=== PATIENT | male | born 1955 | race Caucasian/White ===

== ENCOUNTER 2022-11-27 07:22 | Day surgery (SDC) | payer MEDICARE, BC, SELFPAY ==
[2022-11-27] MEDS: TETRACAINE 0.5% OPHTH 1 DROP EYE-LEFT ×2 (07:45→07:59)
[2022-11-27] MEDS: KETOROLAC OPHTH 0.5% 1 DROP EYE-LEFT ×3 (07:45→08:18)
--- NOTE | 2022-11-27 07:45 | SUR.PREOP ---
The eye drops brought by the patient (Ketorolac and Prednisolone) are examined and I have determined they are labeled by the patient's pharmacy for this patient as prescribed by the surgeon. The bottles are intact, recently obtained and appear to be correct.
[2022-11-27] MEDS: SODIUM CHLORIDE 0.9 % (FLUSH) 10 ML SYRINGE IVF (07:59)
[2022-11-27 08:01] VITALS: BP 121/91; PULSE 56; RESP 16; TEMP 36.7; O2SAT 97
[2022-11-27 08:03] VITALS: BMI 21.3
[2022-11-27] MEDS: TETRACAINE 0.5% OPHTH 2 DROP EYE-LEFT (09:06)
[2022-11-27] MEDS: BALANCED SALT IRRIG SOLN 15 ML EYE-LEFT (09:14)
[2022-11-27] MEDS: TETRACAINE 0.5% OPHTH 3 DROP EYE-LEFT (09:15)
--- NOTE | 2022-11-27 09:16 | W.ANESCHARGE ---
Anesthesia Charges Start Date/Time Anesthesia Start Date: 11/27/22 Anesthesia Start Time: 09:02 Stop Date/Time Anesthesia Stop Date: 11/27/22 Anesthesia Stop Time: 09:39
--- NOTE | 2022-11-27 09:17 | W.ANESCHARGE ---
Anesthesia Charges Start Date/Time Anesthesia Start Date: 11/27/22 Anesthesia Start Time: 09:02 Stop Date/Time Anesthesia Stop Date: 11/27/22 Anesthesia Stop Time: 09:39
[2022-11-27 09:34] VITALS: BP 114/85; PULSE 61; RESP 16; TEMP 36.8; O2SAT 98
--- NOTE | 2022-11-27 10:20 | W.PM.OPTPROC ---
Procedure Note Date of procedure: 11/27/22 Will [facility] bill your pro fee for this procedure?: Yes Procedure Description: SURGEON: Dione James MD PREOPERATIVE DIAGNOSIS: Nuclear sclerotic cataract, left eye. POSTOPERATIVE DIAGNOSIS: Nuclear sclerotic cataract, left eye. NAME OF OPERATION: Phacoemulsification of cataract with posterior chamber intraocular lens implantation in the left eye. ANESTHESIA: Topical. ESTIMATED BLOOD LOSS: Less than 2 cc. COMPLICATIONS: None. PATHOLOGY SPECIMEN: None. INDICATIONS: See consult note for details. The risks, benefits and alternatives of the procedure were explained to the patient, who elected to proceed and signed informed consent to do so. PROCEDURE: The patient was brought to the pre-holding area where the left eye was identified as the operative eye. I placed my initials above this eye. The patient received eye drops consisting of 0.5% tetracaine, 1% tropicamide, 10% phenylephrine, and 0.5% ketorolac. The patient was then brought to the operating room where the left eye was again identified as the operative eye. The eye was prepped with Betadine and draped in the usual sterile ophthalmic fashion. A #15 super-sharp blade was used to create a paracentesis site. 1% non-preserved intracameral lidocaine was injected into the anterior chamber. Endocoat was injected into the anterior chamber. A 2.4 mm keratome was used to create a three-plane self-sealing incision 1 mm anterior to the temporal limbus. A cystotome was used to create an anterior capsular leaflet. The Utrata forceps were used to extend this to form a continuous curvilinear capsulorrhexis. Hydrodissection was performed. The cataract was removed with phacoemulsification using the dlsmcn-[id number]-jzispua technique. The irrigation and aspiration tip was used to remove the remaining cortex. Healon was injected into the capsular bag. An MDADIE ZCB00 intraocular lens of 19.5 diopters was injected into the capsular bag. The irrigation and aspiration tip was used to remove the remaining viscoelastic. Balanced salt solution on a cannula was used to hydrate the wound, and the wound was found to be watertight. The pupil was noted to be round. DISPOSITION: The patient was taken to the recovery room and discharged to home in stable condition. The patient was instructed to call me or go to the emergency department with any sudden change, including dramatic loss of vision, severe pain in the eye or eyebrow region, nausea, or vomiting. The patient will follow up in the clinic tomorrow morning.
--- NOTE | 2022-11-27 11:44 | W.PM.OPTPROC ---
Procedure Note Date of procedure: 11/27/22 Will [facility] bill your pro fee for this procedure?: Yes Procedure Description: SURGEON: Dione James MD PREOPERATIVE DIAGNOSIS: Nuclear sclerotic cataract, left eye. POSTOPERATIVE DIAGNOSIS: Nuclear sclerotic cataract, left eye. NAME OF OPERATION: Phacoemulsification of cataract with posterior chamber intraocular lens implantation in the left eye. ANESTHESIA: Topical. ESTIMATED BLOOD LOSS: Less than 2 cc. COMPLICATIONS: None. PATHOLOGY SPECIMEN: None. INDICATIONS: See consult note for details. The risks, benefits and alternatives of the procedure were explained to the patient, who elected to proceed and signed informed consent to do so. PROCEDURE: The patient was brought to the pre-holding area where the left eye was identified as the operative eye. I placed my initials above this eye. The patient received eye drops consisting of 0.5% tetracaine, 1% tropicamide, 10% phenylephrine, and 0.5% ketorolac. The patient was then brought to the operating room where the left eye was again identified as the operative eye. The eye was prepped with Betadine and draped in the usual sterile ophthalmic fashion. A #15 super-sharp blade was used to create a paracentesis site. 1% non-preserved intracameral lidocaine was injected into the anterior chamber. Endocoat was injected into the anterior chamber. A 2.4 mm keratome was used to create a three-plane self-sealing incision 1 mm anterior to the temporal limbus. A cystotome was used to create an anterior capsular leaflet. The Utrata forceps were used to extend this to form a continuous curvilinear capsulorrhexis. Hydrodissection was performed. The cataract was removed with phacoemulsification using the hfgbbq-esf-tinbkhs technique. The irrigation and aspiration tip was used to remove the remaining cortex. Healon was injected into the capsular bag. An MADDIE ZCB00 intraocular lens of 19.5 diopters was injected into the capsular bag. The irrigation and aspiration tip was used to remove the remaining viscoelastic. Balanced salt solution on a cannula was used to hydrate the wound, and the wound was found to be watertight. The pupil was noted to be round. DISPOSITION: The patient was taken to the recovery room and discharged to home in stable condition. The patient was instructed to call me or go to the emergency department with any sudden change, including dramatic loss of vision, severe pain in the eye or eyebrow region, nausea, or vomiting. The patient will follow up in the clinic tomorrow morning.
== END 2022-11-27 09:56 | disposition home or self-care (01) ==
PROVIDERS: PCP Internal Medicine; Visit Provider Ophthalmology
PROC: (CPT 66984; principal; 2022-11-27 07:30)
DX: H25.11 Age-related nuclear cataract, right eye (principal)
CPT/HCPCS: 66984; 00142; A9270; J2250; J3010; V2632

== ENCOUNTER 2022-12-11 07:27 | Day surgery (SDC) | payer MEDICARE, BC, SELFPAY ==
[2022-12-11] MEDS: KETOROLAC OPHTH 0.5% 1 DROP EYE-RIGHT ×3 (07:40→07:50)
[2022-12-11] MEDS: TETRACAINE 0.5% OPHTH 1 DROP EYE-RIGHT ×2 (07:40→07:45)
[2022-12-11 07:49] VITALS: BMI 21.3
[2022-12-11 07:53] VITALS: BP 132/92; PULSE 62; RESP 16; TEMP 36.3; O2SAT 95
[2022-12-11] MEDS: SODIUM CHLORIDE 0.9 % (FLUSH) 10 ML SYRINGE IVF (07:59)
--- NOTE | 2022-12-11 08:02 | SUR.PREOP ---
The eye drops brought by the patient (Ketorolac and Prednisolone) are examined and I have determined they are labeled by the patient's pharmacy for this patient as prescribed by the surgeon. The bottles are intact, recently obtained and appear to be correct.lizette kimble rn
[2022-12-11] MEDS: TETRACAINE 0.5% OPHTH 2 DROP EYE-RIGHT (08:33)
[2022-12-11] MEDS: BALANCED SALT IRRIG SOLN 15 ML EYE-RIGHT (08:38)
--- NOTE | 2022-12-11 09:00 | W.ANESCHARGE ---
Anesthesia Charges Start Date/Time Anesthesia Start Date: 12/11/22 Anesthesia Start Time: 08:31 Stop Date/Time Anesthesia Stop Date: 12/11/22 Anesthesia Stop Time: 09:02
[2022-12-11 09:07] VITALS: BP 123/93; PULSE 65; RESP 16; TEMP 36.8; O2SAT 97
--- NOTE | 2022-12-11 09:51 | W.PM.OPTPROC ---
Procedure Note Date of procedure: 12/11/22 Will [facility] bill your pro fee for this procedure?: Yes Procedure Description: SURGEON: Dione James MD PREOPERATIVE DIAGNOSIS: Nuclear sclerotic cataract, right eye. POSTOPERATIVE DIAGNOSIS: Nuclear sclerotic cataract, right eye. NAME OF OPERATION: Phacoemulsification of cataract with posterior chamber intraocular lens implantation in the right eye. ANESTHESIA: Topical. ESTIMATED BLOOD LOSS: Less than 2 cc. COMPLICATIONS: None. PATHOLOGY SPECIMEN: None. INDICATIONS: See consult note for details. The risks, benefits and alternatives of the procedure were explained to the patient, who elected to proceed and signed informed consent to do so. PROCEDURE: The patient was brought to the pre-holding area where the right eye was identified as the operative eye. I placed my initials above this eye. The patient received eye drops consisting of 0.5% tetracaine, 1% tropicamide, 10% phenylephrine, and 0.5% ketorolac. The patient was then brought to the operating room where the right eye was again identified as the operative eye. The eye was prepped with Betadine and draped in the usual sterile ophthalmic fashion. A #15 super-sharp blade was used to create a paracentesis site. 1% non-preserved intracameral lidocaine was injected into the anterior chamber. Endocoat was injected into the anterior chamber. A 2.4 mm keratome was used to create a three-plane self-sealing incision 1 mm anterior to the temporal limbus. A cystotome was used to create an anterior capsular leaflet. The Utrata forceps were used to extend this to form a continuous curvilinear capsulorrhexis. Hydrodissection was performed. The cataract was removed with phacoemulsification using the ahrkjy-lew-qncipuh technique. The irrigation and aspiration tip was used to remove the remaining cortex. Healon was injected into the capsular bag. An MADDIE ZCB00 intraocular lens of 19.0 diopters was injected into the capsular bag. The irrigation and aspiration tip was used to remove the remaining viscoelastic. Balanced salt solution on a cannula was used to hydrate the wound, and the wound was found to be watertight. The pupil was noted to be round. DISPOSITION: The patient was taken to the recovery room and discharged to home in stable condition. The patient was instructed to call me or go to the emergency department with any sudden change, including dramatic loss of vision, severe pain in the eye or eyebrow region, nausea, or vomiting. The patient will follow up in the clinic tomorrow morning.
--- NOTE | 2022-12-11 11:54 | W.ANESCHARGE ---
Anesthesia Charges Start Date/Time Anesthesia Start Date: 12/11/22 Anesthesia Start Time: 08:31 Stop Date/Time Anesthesia Stop Date: 12/11/22 Anesthesia Stop Time: 09:02
== END 2022-12-11 09:50 | disposition home or self-care (01) ==
PROVIDERS: PCP Internal Medicine; Visit Provider Ophthalmology
PROC: (CPT 66984; principal; 2022-12-11 07:30)
DX: H25.11 Age-related nuclear cataract, right eye (principal)
CPT/HCPCS: 66984; 00142; A9270; J2250; J3010; V2632

== ENCOUNTER 2022-12-25 07:12 | Outpatient (CLI) | payer MEDICARE, BC, SELFPAY ==
--- NOTE | 2022-12-25 07:15 | CRLHL7_ITS ---
For Patients: As a result of the Cures Act, medical imaging exams and procedure reports are released immediately into your electronic medical record. You may view this report before your referring provider. If you have questions, please contact your health care provider. Examination: US abdominal aorta Indication: Abdominal aortic aneurysm screening. Technique: Hayes scale and color Doppler images of the aorta and common iliac arteries are obtained. Comparison: None Findings: Proximal aorta: 2.7 x 2.9 cm Mid aorta: 2.1 x 2.1 cm Distal aorta: 2.1 x 2.1 cm Right common iliac artery: 1.3 x 1.5 cm Left common iliac artery: 1.5 x 1.5 cm Recommended imaging interval for ectatic aorta: 2.5-2.9 cm: 5 years Impression: No abdominal aortic aneurysm. Dictated by Kuldeep Weber MD @ 12/25/2022 9:21:50 AM (Electronically Signed)
== END 2022-12-25 07:13 | disposition home or self-care (01) ==
LOC: US 07:14
PROVIDERS: PCP Internal Medicine; Visit Provider Internal Medicine
DX: Z13.6 Encounter for screening for cardiovascular disorders (principal)
CPT/HCPCS: 76706

== ENCOUNTER 2023-03-06 07:30 | Outpatient (CLI) | payer MEDICARE, BC, SELFPAY ==
--- OUTSIDE RECORDS SUMMARY | 2023-03-10 11:58 | XMS_ITS | Clinical Summary ---
Author Name Unknown Organization [employer] [facility] Address [place], [place] [address] Care Team Providers Care Special [employer] Engineer Sergeant Name Role Phone Shanon Thompson MD Primary Care Provider [phone] Allergies Active Allergy Reactions Criticality Noted Date Comments Cephalexin Hives Medium 05/23/2006 Latex Hives Medium 05/23/2006 Naproxen Anaphylaxis High 05/23/2006 Peanut Anaphylaxis High 05/23/2006 Tree Nut Anaphylaxis High 06/24/2006 Medications Medication Sig Dispensed Refills Start Date End Date Status MULTIVITAMIN AND MINERALS TAB 1 tablet every day 0 06/24/2006 Acti ve VENTOLIN 90 MCG/ACTUATION AEROSOL INHALER inhale 1 puff by inhalation route every 4-6 hours as needed 1 1 08/01/2006 Active SUMAtriptan (IMITREX) 100 mg tablet 0 12/28/2019 Active cyclobenzaprine (FLEXERIL) 5 mg tablet 0 12/28/2019 Active venlafaxine (EFFEXOR XR) 150 mg Extended-Release capsule 0 12/28/2019 Active CPAPIndications:NESS (obstructive sleep apnea) New CPAP machine for home use at pressure: 5-16 cmw , Heated humidifier x 1 q 5 yr, Humidifier chamber x 1 q 6 mo, full face mask x1 q 3mos, with full face mask cushion x 2 q mo, Heated tubing x 1 q 3 mo, Headgear x 1 q 6 mo, Filters: Disposable x 2 q mo non-disposable filters x1 q 6mo, Length of Need: 99 months, Frequency of use: Daily 1 Device 11 01/18/2020 Active Active Problems Problem Noted Date Diagnosed Date NESS 09/2007 AHI- 8 03/25/2011 Unspecified asthma(493.90) 08/01/2006 Major Depressive Disorder, Recurrent Episode, Mo derate 05/23/2006 Immunizations Name Administration Dates Next Due Influenza, IIV3 (Age >=3 years) 12/23/2005 Family History Medical History Relation Name Comments Alcohol/Drug Brother 2 Alcohol/Drug Father alcoholism Hyperlipidemia Father Arthritis Maternal Grandmother Diabetes Maternal Grandmother Alcohol/Drug Mother addicted to pre scription drugs Allergies Mother Asthma Mother Heart Disease Mother Stroke Mother Alcohol/Drug Paternal Grandfather Cancer Paternal Grandfather Allergies Paternal Grandmother Hyperlipidemia Paternal Grandmother Hypertension Paternal Grandmother Alcohol/Drug Sister 3 Alcohol/Drug Sister 4 Allergies Sister 5 Asthma Sister 6 Heart Disease Sister 7 Hypertension Sister 8 Relation Name Status Comments Brother 1 Alive Brother 2 Daughter Alive Father Maternal Grandfather Maternal Grandmother Mother Alive Paternal Grandfather Paternal Grandmother Sister 1 Alive Sister 2 Alive Sister 3 Sister 4 Sister 5 Sister 6 Sister 7 Sister 8 Son Alive Social History Tobacco Use Types Packs/Day Years Used Date Smoking Tobacco: Every Day Cigarettes 1 20 Smokeless Tobacco: Never Tobacco Cessation:Ready to Q uit: No; Counseling Given: Yes Alcohol Use Standard Drinks/Week Comments Yes 11.7 (1 standard drink = 0.6 oz pure alcohol) Social Connections Answer Date Recorded Frequency of Communication with Friends and Fami ly Not on file 02/17/2021 Financial Resource Strain Answer Date R ecorded Difficulty of Paying Living Expenses Not on file 02/17/2021 Difficulty of Paying Living Expenses Not on file 02/17/2021 Sex and Gender Information Value Date Recorded Sex Assigned at Not on file Gender Identity Not on file Sexual Orientation Not on file Obstetrics History Last Filed Vital Signs Vital Sign Reading Time Taken Comments Blood Pressure 143/99 01/12/2020 1:11 PM BANK VAULT ATTENDANT Pulse 96 01/12/2020 1:11 PM BANK VAULT ATTENDANT Temperature 36.8 ??C (98.3 ??F) 03/25/2011 3:33 PM CS T Respiratory Rate - - Oxygen Saturation 99% 01/12/2020 1:05 PM BANK VAULT ATTENDANT Inhaled Oxygen Concentration - - Weight 77.9 kg (171 lb 12.8 oz) 01/12/2020 1:05 PM BANK VAULT ATTENDANT Height - - Body Mass Index - - Plan of Treatment Health Maintenance Due Date Last Done Comments COVID-19 vaccine series (#1) 03/02/1958 Tdap 1968 Depression screening for age 12+ 1969 HIV for age 15-65 1972 BMI (ht and wt on same day) for age 18+ 08/31/1975 Hepatitis C screening for age 18-79 08/31/1975 Tetanus booster 1977 Colonoscopy through age 75 2002 Lipids for age 45-75 2002 Zoster (shingles) series for age 50+ (1 of 2) 08/31/19 08 Pneumococcal series for age 65+ (1 of 1 - PCV) 023 Influenza for age 65+ 10/18/2022 12/23/2005 Care Teams Special Forces Engineer Sergeant Relationship Specialty Start Date End Date Shanon Thompson MD [address] [place] [address] PCP - General Internal Medicine 01/12/20
== END 2023-03-06 07:31 | disposition home or self-care (01) ==
LOC: NFLDREF 03-10 11:57
PROVIDERS: PCP Internal Medicine; Referring Provider Internal Medicine; Visit Provider Internal Medicine
DX: Z12.5 Encounter for screening for malignant neoplasm of prostate (principal); Z13.1 Encounter for screening for diabetes mellitus; Z13.6 Encounter for screening for cardiovascular disorders
CPT/HCPCS: 80061; 82947; G0103

== ENCOUNTER 2023-03-14 07:02 | Outpatient (CLI) | payer MEDICARE, BC, SELFPAY ==
--- OUTSIDE RECORDS SUMMARY | 2023-03-14 07:04 | XMS_ITS | Clinical Summary ---
Author Name Unknown Organization [employer] [facility] Address [place], [place] [address] Care Team Providers Care Director Of Solutions Architecture Name Role Phone Shanon Thompson MD Primary Care Provider +1- [phone] Allergies Active Allergy Reactions Criticality Noted Date [...] Comments Blood Pressure 143/99 01/12/2020 1:11 PM CIRCUIT BOARD REPAIR TECHNICIAN Pulse 96 01/12/2020 1:11 PM CIRCUIT BOARD REPAIR TECHNICIAN Temperature 36.8 ??C (98.3 ??F) 03/25/2011 3:33 PM CS T Respiratory Rate - - Oxygen Saturation 99% 01/12/2020 1:05 PM CIRCUIT BOARD REPAIR TECHNICIAN Inhaled Oxygen Concentration - - Weight 77.9 kg (171 lb 12.8 oz) 01/12/2020 1:05 PM CIRCUIT BOARD REPAIR TECHNICIAN Height - - Body Mass Index - [...] for age 65+ 10/18/2022 12/23/2005 Care Teams Director Of Solutions Architecture Relationship Specialty Start Date End Date Shanon Thompson MD [address] [place] [address] PCP - General Internal Medicine 01/12/20
--- NOTE | 2023-03-14 07:15 | CRLHL7_ITS ---
For Patients: As a result of the Century Cures Act, medical imaging exams and procedure reports are released immediately into your electronic medical record. You may view this report before your referring provider. If you have questions, please contact your health care provider. INDICATION: Aneurysm. COMPARISON: 12/08/2018. TECHNIQUE: Axial diffusion-weighted sequence. [id number] MRA of the head. 3D reconstructed images. FINDINGS: No restricted diffusion to suggest acute ischemia. Compared to the previous exam, there is new focal dilatation with flow artifact medial to the distal left cervical ICA measuring approximately 9 mm in diameter (series 4, image 18). On 3D reconstructed images, finding is concerning for pseudo aneurysm (best seen on series 8, image 9). Otherwise, bilateral carotid siphons are patent to the skullbase. Patent [place] with diminutive bilateral posterior communicating arteries. Visualized bilateral FLOR and MCA circulations are patent without high-grade stenosis, large vessel occlusion, aneurysm. Bilateral PAY STATION COLLECTOR circulations are patent without stenosis or aneurysm. Patent right dominant vertebrobasilar system. IMPRESSION: 1. 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 2. Remainder of the MRA head is normal. Outpatient consultation with the [facility] can be arranged by calling [phone]. Dictated by Harsha Caba MD @ 03/14/2023 12:40:16 PM (Electronically Signed)
== END 2023-03-14 07:03 | disposition home or self-care (01) ==
LOC: MRI 07:02
PROVIDERS: PCP Internal Medicine; Visit Provider Internal Medicine
DX: I67.1 Cerebral aneurysm, nonruptured (principal); Z82.49 Family history of ischemic heart disease and other diseases of the circulatory system; G43.009 Migraine without aura, not intractable, without status migrainosus
CPT/HCPCS: 70544

== ENCOUNTER 2023-07-26 10:26 | Emergency (ER) | payer MEDICARE, BC, SELFPAY ==
[2023-07-26 10:32] VITALS: BP 116/78; PULSE 104; RESP 16; TEMP 35.9; O2SAT 97; BMI 21.1
--- NOTE | 2023-07-26 10:40 | CRLHL7_ITS ---
For Patients: As a result of the Cures Act, medical imaging exams and procedure reports are released immediately into your electronic medical record. You may view this report before your referring provider. If you have questions, please contact your health care provider. INDICATION: Tree fell on patient TECHNIQUE: Three views left femur FINDINGS/IMPRESSION: Normal alignment. Seen along the distal medial left femoral cortex is slight curvilinear lucency. This could be related to age indeterminate traumatic change correlate with site of pain. There is otherwise no acute fracture visualized. This could be followed up radiographically. No hip fracture. Dictated by Kenia Bush MD @ 07/26/2023 11:18:13 AM (Electronically Signed)
--- NOTE | 2023-07-26 10:41 | CRLHL7_ITS ---
For Patients: As a result of the Century Cures Act, medical imaging exams and procedure reports are released immediately into your electronic medical record. You may view this report before your referring provider. If you have questions, please contact your health care provider. Indication: Injury, rule out active bleeding. Technique: Focused sonographic evaluation was performed of the left thigh. Comparison: None available. Findings: Grayscale images demonstrate 2 heterogeneous avascular regions adjacent to the femoral cortex. The larger region measures 8.0 x 4.0 x 7.3 cm and the smaller region measures 5.1 by 3.4 x 6.5 cm. There is a small amount of color Doppler flow along the margins of these collections; however, no definite internal color Doppler flow is seen to suggest active bleeding. Exact location of these hematomas is difficult to determine given limited field of view. Impression: Two hematomas along the medial aspect of the left thigh without sonographic evidence of active bleeding; however, evaluation is limited due to field of view. Dictated by Edelmira Turcios MD @ 07/26/2023 11:58:52 AM (Electronically Signed)
--- NOTE | 2023-07-26 10:43 | ED_ITS ---
HPI - General Adult General Chief complaint: Extremity Pain/Injury, Lower Stated complaint: L leg injury, swelling Time Seen by Provider: 07/26/23 10:37 History of Present Illness HPI narrative: Patient is a 67-year-old male who had a tree that he was cutting about 6 in in diameter fall in his left medial distal thigh. He noticed a large swelling in that area and presents to the ER. He is able to walk. Does not have that much pain. He is not on any blood thinners. He denies any other injury. He has been on venlafaxine but is not on other medications. He has a past history that is reviewed in his chart. He is allergic to nap prox and cephalosporin and nonsteroidal anti-inflammatory drugs, Ativan tizanidine peanuts and tree nuts. Also allergic to latex. Related Data Home Medications ?Medication ?Instructions ?Recorded ?Confirmed Fibroplex PO 08/28/21 03/20/23 Melaleuca PO 08/28/21 03/20/23 cyclobenzaprine 5 mg tablet 5 mg PO .Qhs as needed PRN 08/28/21 03/20/23 epinephrine 0.3 mg/0.3 mL 0.3 mg IM ONCE 08/28/21 03/20/23 injection, auto-injector latanoprost 0.005 % eye drops 1 drp ophthalmic (eye) QDAY 02/21/22 03/20/23 clobetasol 0.05 % topical ointment topical 03/04/23 03/20/23 doxycycline monohydrate 50 mg 50 mg PO BID 03/04/23 03/20/23 capsule Previous Rx's ?Medication ?Instructions ?Recorded sumatriptan succinate 100 mg tablet 100 mg PO .Once as needed PRN 03/04/23 migraine headache #9 tabs venlafaxine 150 mg 150 mg PO DAILY #90 caps 03/04/23 capsule,extended release 24 hr Allergies Allergy/AdvReac Type Severity Reaction Status Date / Time naproxen Allergy Severe severe Verified 03/20/23 08:30 anaphylactic Cephalosporins Allergy Intermediate Rash Verified 03/20/23 08:30 latex Allergy Mild Rash Verified 03/20/23 08:30 NSAIDS (Non-Steroidal Allergy Unknown Verified 03/20/23 08:30 Anti-Inflamma lorazepam [From Ativan] AdvReac Intermediate skin Verified 03/20/23 08:30 crawling tizanidine AdvReac Intermediate akathisia/r Verified 03/20/23 08:30 estlessness PEANUTS Allergy Severe SOB Uncoded 03/20/23 08:30 Tree Nuts Allergy Mild Uncoded 03/20/23 08:30 Review of Systems Status of ROS: Reports: 6 or more systems reviewed and unremarkable except as noted in History and below PFSH [facility] Medical History History of asthma ?Z87.09 - Personal history of other diseases of the respiratory system (ICD- 10) Family history of cerebral aneurysm ?Z82.49 - Family history of ischemic heart disease and other diseases of the circulatory system (ICD-10) Surgical History History of cataract surgery ?Z98.49 - Cataract extraction status, unspecified eye (ICD-10) History of squamous cell carcinoma excision ?Z98.890 - Other specified postprocedural states (ICD-10) ?Z85.9 - Personal history of malignant neoplasm, unspecified (ICD-10) History of arthroscopic knee surgery ?Z98.890 - Other specified postprocedural states (ICD-10) History of sinus surgery ?Z98.890 - Other specified postprocedural states (ICD-10) History of vasectomy (02/13/09) ?Z98.52 - Vasectomy status (ICD-10) History of bilateral inguinal hernia repair (09/22/09) ?Z98.890 - Other specified postprocedural states (ICD-10) ?Z87.19 - Personal history of other diseases of the digestive system (ICD-10) Social History What is your current living situation?: I presently have a place to live Problems where you live: no known problems In the past 12 months, utilities in danger of being shut off: no In past 12 months, lack of transportation kept you from medical appts, meetings, work, or getting things needed for daily living: no In the past 12 mos, have been you worried that your food would run out before you had money to buy more?: never true In the past 12 mos, the food you bought just didn't last and you didn't have money to buy more?: never true Smoking Status: Current every day smoker What tobacco products do you use: cigarettes Smoking packs per day: 1 Smoking cigarettes per day: 20.0 How often do you have a drink containing alcohol: 4 or more times a week How many standard drinks containing alcohol do you have on a typical day: 1 or 2 How often do you have six or more drinks on one occasion: Never AUDIT-C Alcohol total score: 4 Non-prescribed substance use: denies use Caffeine: Yes (coffee) How often does anyone, including family, friends and others, physically hurt you : never How often does anyone, including family, friends and others, insult or talk down to you: never How often does anyone, including family, friends and others, threaten you with harm: never How often does anyone, including family, friends and others, scream or curse at you: never Little interest or pleasure in doing things: not at all Feeling down, depressed, or hopeless: not at all Exam Narrative: Exam Narrative: Objective: Patient's vital signs are within normal limits His left medial thigh shows a soft ball size hematoma, it is not bruised, but it is swollen at his medial quadriceps. He has ability to walk around the room, he does limp slightly. He has no knee pain or swelling. He has this area that is minimally fluctuant but slightly fluctuant feels like a hematoma. He does have good knee extension. No open wounds noted. Const: Vital Signs, click to edit/add: Vital Signs - 24 hr 07/26/23 10:32 Temperature 96.6 F L Pulse Rate [Pulse Oximeter] 104 H Respiratory Rate 16 Blood Pressure [Ri ght Upper Arm] 116/78 Pulse Oximetry 97 Oxygen Delivery Me thod Room Air Course Vital Signs Vital signs: Initial Vital Signs Temperature 96.6 F L 07/26/23 10:32 Temperature Source Temporal Artery Scan 07/26/23 10:32 Pulse Rate 104 H 07/26/23 10:32 Respiratory Rate 16 07/26/23 10:32 Blood Pressure 116/78 07/26/23 10:32 Blood Pressure Mean 90 07/26/23 10:32 Blood Pressure Position Sitting 07/26/23 10:32 Pulse Oximetry 97 07/26/23 10:32 Oxygen Delivery Method Room Air 07/26/23 10:32 Vital Signs Temperature 96.6 F L 07/26/23 10:32 Pulse Rate 104 H 07/26/23 10:32 Respiratory Rate 16 07/26/23 10:32 Blood Pressure 116/78 07/26/23 10:32 Pulse Oximetry 97 07/26/23 10:32 Oxygen Delivery Method Room Air 07/26/23 10:32 Temperature 96.6 F L 07/26/23 10:32 Pulse Rate 104 H 07/26/23 10:32 Respiratory Rate 16 07/26/23 10:32 Blood Pressure 116/78 07/26/23 10:32 Pulse Oximetry 97 07/26/23 10:32 Oxygen Delivery Method Room Air 07/26/23 10:32 Medical Decision Making MDM Narrative Medical decision making narrative: 67-year-old male with a large tree impacting his distal medial thigh, with resultant hematoma. The patient does not have circumferential swelling. He does not appear to have compartment type syndrome as he is not having pain, he has got distal pulse he has got distal sensation and color and cap refill that is normal. At this point I think an ultrasound an x-ray of his thigh would be appropriate will see if there is any active bleeding. Disposition pending findings above. Addendum 11:37 a.m.: The patient has a small little lucency in his cortex of the area of injury. This certainly could be related to his injury with the tree today, but may be an old injury as well. I think non weight-bearing immobilization ortho follow-up would be appropriate will give him crutches and knee immobilizer, he can use Tylenol for discomfort he is not having much pain at this time. Return if problems or concerns. Ortho appointment be made for him. Discharge Plan Discharge Clinical Impression: Injury of thigh, left Patient Disposition: Home w/ Parent or Adult Condition: Stable Additional Instructions: Nonweightbearing on the affected leg, wear the knee immobilizer and use crutches, orthopedic followup as described. You have a large blood collection in year thigh, and perhaps some mild injury to the bone underneath, you will see the orthopedist doctor for this. Tylenol as needed for discomfort, ice would be reasonable as well over the swelling. Activity Level: No Weight Bearing Discharge Diet: Regular Prescriptions: No Action doxycycline monohydrate 50 mg capsule 50 mg PO BID clobetasol 0.05 % ointment topical venlafaxine 150 mg capsule,extended release 24hr 150 mg PO DAILY Qty: 90 3RF sumatriptan succinate 100 mg tablet 100 mg PO .Once as needed PRN (Reason: migraine headache) Qty: 9 8RF Rx Instructions: 0.5 or 1 tab at start of headache; may repeat once in 2 hours; use no more than two days a week Melaleuca PO cyclobenzaprine 5 mg tablet 5 mg PO .Qhs as needed PRN Rx Instructions: Use qhs prn prolonged headches epinephrine 0.3 mg/0.3 mL auto-injector 0.3 mg IM ONCE Fibroplex PO latanoprost 0.005 % drops 1 drp ophthalmic (eye) QDAY Follow Up/Referrals: Shanon Thomposn MD [Primary Care Provider] - Stand Alone Forms: MyHealth Info Instructions
--- OUTSIDE RECORDS SUMMARY | 2023-07-26 10:47 | XMS_ITS | Clinical Summary ---
Author Organization [facility] Address [place], [place] [address] Care Team Providers Care Design Agent Name Role Phone Shanon Thompson MD Primary Care Provider [phone]- [phone] Allergies Active Allergy Reactions Criticality Noted Date Comments Alprazolam *Unknown - Follow up needed 03/25/19 24 Cephalexin Hives Medium 05/23/2006 Latex Hives Medium 05/23/2006 Naproxen Anaphylaxis High 05/23/2006 Peanut Anaphylaxis High 05/23/2006 Tree Nut Anaphylaxis High 06/24/2006 Medications Medication Sig Dispensed Refills Start Date End Date Status MULTIVITAMIN AND MINERALS TAB 1 tablet every day 0 06/24/2006 Acti ve VENTOLIN 90 MCG/ACTUATION AEROSOL INHALER inhale 1 puff by inhalation route every 4-6 hours as needed 1 1year 08/01/2006 Active SUMAtriptan (IMITREX) 100 mg tablet 12/28/2019 Active cyclobenzaprine (FLEXERIL) 5 mg tablet 12/28/2019 Active venlafaxine (EFFEXOR XR) 150 mg Extended-Release capsule 12/28/2019 Active CPAPIndications:NESS (obstructive sleep apnea) New [...] use: Daily 1 Device 11 01/18/2020 Active hyaluronidase in lido 2%-bupiv. 0.75% - long eye block, clinic supply, Use as directed for procedure. Refrigerate. Expires: 04/04/23 DOS: 04/03/23 10 mL 03/25/2023 Active Active Problems Problem Noted Date Diagnosed [...] Comments Blood Pressure 143/99 01/12/2020 1:11 PM GATE TECHNICIAN Pulse 96 01/12/2020 1:11 PM GATE TECHNICIAN Temperature 36.8 ??C (98.3 ??F) 03/25/2011 3:33 PM CS T Respiratory Rate - - Oxygen Saturation 99% 01/12/2020 1:05 PM GATE TECHNICIAN Inhaled Oxygen Concentration - - Weight 77.9 kg (171 lb 12.8 oz) 01/12/2020 1:05 PM GATE TECHNICIAN Height - - Body Mass Index - - Plan of Treatment Health Maintenance Due Date Last Done Comments Tdap 1968 Depression screening for age 12+ [...] 65+ (1 of 1 - PCV) 023 COVID-19 vaccine series ( season) 3 Influenza for age 65+ 10/19/2023 12/23/2005 Care Teams Design Agent Relationship Specialty Start Date End Date Shanon Thompson MD [address] [place] [address] PCP - General Internal Medicine 01/12/20
== END 2023-07-26 11:51 | disposition home or self-care (01) ==
PROVIDERS: Emergency Provider Family Medicine; PCP Internal Medicine
DX: S79.922A Unspecified injury of left thigh, initial encounter (principal); V91.39XA Hit or struck by falling object due to accident to unspecified watercraft, initial encounter
CPT/HCPCS: 73552; 76882; 99283; 99284

== ENCOUNTER 2023-08-26 08:54 | Outpatient (CLI) | payer MEDICARE, BC, SELFPAY ==
--- OUTSIDE RECORDS SUMMARY | 2023-08-26 08:57 | XMS_ITS | Clinical Summary ---
Author Organization [facility] Address [place], [place] [address] Care Team Providers Care Roller Helper Name Role Phone Shanon Thompson MD Primary Care Provider [phone]- [phone] Allergies Active Allergy Reactions Criticality Noted Date [...] Depressive Disorder, Recurrent Episode, Mo derate 05/23/2006 Encounters Date Type Department Care Team Description 08/11/2023 Telephone [facility] [address] [place] [address] Staff, Other Clinical ANEURYSM REFERRAL from Last 3 Months Immunizations Name Administration Dates Next Due Influenza, [...] Comments Blood Pressure 143/99 01/12/2020 1:11 PM ABRASIVE GRADER HELPER Pulse 96 01/12/2020 1:11 PM ABRASIVE GRADER HELPER Temperature 36.8 ??C (98.3 ??F) 03/25/2011 3:33 PM CS T Respiratory Rate - - Oxygen Saturation 99% 01/12/2020 1:05 PM ABRASIVE GRADER HELPER Inhaled Oxygen Concentration - - Weight 77.9 kg (171 lb 12.8 oz) 01/12/2020 1:05 PM ABRASIVE GRADER HELPER Height - - Body Mass Index - - Plan of Treatment Upcoming Encounters Date Type Department Care Team (Late st Contact Info) Description 09/11/2023 2:00 PM CDT Phone Office Visit [facility] [place] [address] [place] [address] Tay Choe MD [facility] [place] [address] [facility] [address] [place], [place] [id number] Health Maintenance Due Date Last Done Comments [...] - PCV) 023 COVID-19 vaccine series ( - season) 3 Influenza for age 65+ 10/19/2023 12/23/2005 Care Teams Roller Helper Relationship Specialty Start Date End Date Shanon Thompson MD [address] [place], [place] [id number] PCP - General Internal Medicine 01/12/20
--- NOTE | 2023-08-26 09:00 | CRLHL7_ITS ---
For Patients: As a result of the Century Cures Act, medical imaging exams and procedure reports are released immediately into your electronic medical record. You may view this report before your referring provider. If you have questions, please contact your health care provider. INDICATION: Cervical left ICA pseudoaneurysm. TECHNIQUE: CTA neck with contrast bolus tracking, 3D angiographic rendering using maximum intensity projection (MIP) and images permanently archived. FINDINGS: There is an [id number] mm mid cervical left ICA pseudoaneurysm. There is no significant carotid artery stenosis. There is no intraluminal thrombus. The right ICA is extremely tortuous and redundant. There is no significant vertebral artery stenosis or dissection. The soft tissues of the neck are within normal limits. The cervical spine is in normal alignment. Degenerative changes are noted in the cervical spine. IMPRESSION: Large cervical left ICA pseudoaneurysm. Please note that all CT scans at this facility use dose modulation, iterative reconstruction, and/or weight-based dosing when appropriate to reduce radiation dose to as low as reasonably achievable. Dictated by Tay Choe MD @ 08/26/2023 1:54:12 PM (Electronically Signed)
--- NOTE | 2023-08-26 09:00 | CRLHL7_ITS ---
For Patients: As a result of the Century Cures Act, medical imaging exams and procedure reports are released immediately into your electronic medical record. You may view this report before your referring provider. If you have questions, please contact your health care provider. INDICATION: Cervical left ICA pseudoaneurysm. TECHNIQUE: CTA head with contrast bolus tracking, 3D angiographic rendering using maximum intensity projection (MIP) and images permanently archived. FINDINGS: There is normal opacification of the intracranial vasculature. There is no large vessel occlusion. No aneurysm is identified. IMPRESSION: Unremarkable head CTA. Please note that all CT scans at this facility use dose modulation, iterative reconstruction, and/or weight-based dosing when appropriate to reduce radiation dose to as low as reasonably achievable. Dictated by Tay Choe MD @ 08/26/2023 1:46:18 PM (Electronically Signed)
[2023-08-26 09:23] LABS: Creatinine* 0.9 mg/dL (0.5-1.5); Estimated Glomerular Filt Rate 95 ml/min
== END 2023-08-26 08:55 | disposition home or self-care (01) ==
LOC: CT 08:54
PROVIDERS: PCP Internal Medicine; Visit Provider Radiology Neuroradiology
DX: I72.9 Aneurysm of unspecified site (principal)
CPT/HCPCS: 36415; 70496; 70498; 82565; Q9967

== ENCOUNTER 2024-04-16 07:58 | Outpatient (CLI) | payer MEDICARE, BC, SELFPAY | END 2024-04-16 07:59 | disposition home or self-care (01) | LOC: CT 07:58 | PROVIDERS: PCP Internal Medicine; Visit Provider Internal Medicine | DX: Z12.2 Encounter for screening for malignant neoplasm of respiratory organs (principal); F17.210 Nicotine dependence, cigarettes, uncomplicated | CPT/HCPCS: 71271 ==